=== PATIENT | female | born 1995 | race Caucasian/White ===

== ENCOUNTER 2018-03-08 08:00 | Outpatient (CLI) | payer OTHER ==
[2018-03-08 12:27] LABS: BASOPHILS # (AUTO) 0.1 10^3/uL (0.0-0.1); EOSINOPHILS # (AUTO) 0.1 10^3/uL (0.0-0.7); EOSINOPHILS % (AUTO) 1.3 %; HGB - HEMOGLOBIN 13.1 g/dL (12.0-16.0); LYMPHOCYTES # (AUTO) 2.2 10^3/uL (1.5-3.5); LYMPHOCYTES % (AUTO) 35.7 %; MEAN CORPUSCULAR HEMOGLOBIN 28.4 pg (27.0-31.0); MEAN PLATELET VOLUME 7.7 fL (7.9-10.8); MONOCYTES # (AUTO) 0.4 10^3/uL (0.0-1.0); MONOCYTES % (AUTO) 5.8 %; NEUTROPHILS # (AUTO) 3.5 10^3/uL (1.5-6.6); NEUTROPHILS % (AUTO) 56.2 %; PLT - PLATELET COUNT 291 10^3/uL (130-450); RED BLOOD COUNT 4.63 10^6/uL (4.20-5.40); RED CELL DISTRIBUTION WIDTH 12.8 % (12.0-15.0); WHITE BLOOD COUNT 6.2 x10^3/uL (4.8-10.8)
[2018-03-08 13:18] LABS: ALBUMIN/GLOBULIN RATIO 1.1 (1.0-2.2); ALKALINE PHOSPHATASE 70 IU/L (42-121); ALT ALANINE AMINOTRANSFERASE 22 IU/L (10-60); AST ASPARTATE AMINOTRANSFERASE 20 IU/L (10-42); BILIRUBIN,TOTAL 0.7 mg/dL (0.2-1.0); BUN - BLOOD UREA NITROGEN 14 mg/dL (6-20); CALCIUM 9.4 mg/dL (8.5-10.3); CARBON DIOXIDE - CO2 26 mmol/L (21-32); CHLORIDE 102 mmol/L (101-111); CHOL/HDL RATIO 2.8 (<4.4); CHOLESTEROL 178 mg/dL; CREATININE 0.8 mg/dL (0.4-1.0); GFR - MDRD 89 (>89); GLUCOSE 89 mg/dL (70-100); HDL CHOLESTEROL 64 mg/dL; LDL CHOLESTEROL,CALCULATED 103 mg/dL; LDL/HDL RATIO 1.6 (<4.4); SODIUM 136 mmol/L (135-145); TOTAL PROTEIN 7.8 g/dL (6.7-8.2); VLDL CHOLESTEROL 11 mg/dL
[2018-03-08 13:27] LABS: CRP - C-REACTIVE PROTEIN < 1.0 mg/dL (0-1.0)
[2018-03-08 13:50] LABS: RHEUMATOID FACTOR NEGATIVE (Negative)
[2018-03-10 13:46] LABS: ANA SCREEN NEGATIVE (NEGATIVE)
== END 2018-03-08 08:01 | disposition home or self-care (01) ==
LOC: LAB.N 08:00
PROVIDERS: ATTEND Nurse Practitioner Gerontology
DX: Z13.9 Encounter for screening, unspecified (principal); M25.50 Pain in unspecified joint
CPT/HCPCS: 36415; 80053; 80061; 83721; 84443; 85025; 85651; 86038; 86140; 86430

== ENCOUNTER 2018-11-08 09:49 | Outpatient (CLI) | payer OTHER ==
[2018-11-08 12:52] LABS: BASOPHILS % (AUTO) 0.7 %; EOSINOPHILS # (AUTO) 0.1 10^3/uL (0.0-0.7); LYMPHOCYTES # (AUTO) 2.1 10^3/uL (1.5-3.5); LYMPHOCYTES % (AUTO) 29.3 %; MEAN CORPUSCULAR HEMOGLOBIN 28.4 pg (27.0-31.0); MEAN CORPUSCULAR HGB CONC 33.5 g/dL (32.0-36.0); MEAN CORPUSCULAR VOLUME 84.9 fL (81.0-99.0); MEAN PLATELET VOLUME 7.5 fL (7.9-10.8); MONOCYTES # (AUTO) 0.4 10^3/uL (0.0-1.0); MONOCYTES % (AUTO) 6.3 %; NEUTROPHILS # (AUTO) 4.4 10^3/uL (1.5-6.6); NEUTROPHILS % (AUTO) 62.7 %; PLT - PLATELET COUNT 292 10^3/uL (130-450); RED BLOOD COUNT 4.58 10^6/uL (4.20-5.40); RED CELL DISTRIBUTION WIDTH 13.1 % (12.0-15.0)
[2018-11-08 13:09] LABS: CHOL/HDL RATIO 2.7 (<4.4); CHOLESTEROL 199 mg/dL; GLUCOSE,FASTING 92 mg/dL (70-100); HDL CHOLESTEROL 75 mg/dL
[2018-11-08 13:13] LABS: THYROID STIMULATING HORMONE 2.36 uIU/mL (0.34-5.60)
[2018-11-08 13:27] LABS: LDL CHOLESTEROL,DIRECT 133 mg/dL; LDLD/HDL RATIO 1.8 (<4.4)
[2018-11-08 13:38] LABS: HB2 TOTAL 14.3 g/dL; HEMOGLOBIN A1C 0.51 g/dL; HEMOGLOBIN A1C % 5.4 % (4.6-6.2)
[2018-11-08 13:40] LABS: FOLLICLE STIMULATING HORMONE 2.89 mIU/mL
[2018-11-08 13:41] LABS: LUTEINIZING HORMONE 8.45 mIU/mL
== END 2018-11-08 23:59 | disposition home or self-care (01) ==
LOC: LAB.N 09:49
PROVIDERS: ATTEND Obstetrics & Gynecology
DX: N92.6 Irregular menstruation, unspecified (principal)
CPT/HCPCS: 36415; 80061; 81599; 82947; 83001; 83002; 83036; 83721; 84402; 84403; 84443; 85025

== ENCOUNTER 2018-11-16 16:56 | Outpatient (CLI) | payer OTHER ==
--- NOTE | 2018-11-16 20:39 | Ultrasound Report ---
Reason: IRREGULAR MENSES Procedure Date: 11/16/2018 Accession Number: [id number] / [id number] Procedure: US - Pelvic w/Transvaginal CPT Code: FULL RESULT: EXAM: PELVIC ULTRASOUND EXAM DATE: 11/16/2018 06:44 PM. CLINICAL HISTORY: IRREGULAR MENSES. COMPARISON: None. TECHNIQUE: Realtime transabdominal pelvic scan performed to identify the uterus and adnexa and as an overview of other pelvic structures, followed by transvaginal scan to provide greater detail of the uterus and adnexa, with static image documentation. FINDINGS: Uterus: 8.2 x 3.9 x 3.7 cm, volume 62 cc. Anteverted position. Normal overall size and echotexture. Masses: None. Endometrium: 11 mm. Normal. Cervix: Unremarkable. Right Ovary: 6.3 x 5.6 x 3.9 cm, volume 70 cc. There is a 5.5 x 5.0 x 3.7 cm hemorrhagic cyst. Normal flow is seen to the surrounding ovarian parenchyma. Left Ovary: 2.7 x 2.0 x 2.0 cm, volume 6 cc. Normal echotexture and blood flow. Free Fluid: None. Other: None. IMPRESSION: 5.5 cm hemorrhagic right ovarian cyst. Normal flow to the surrounding ovarian parenchyma. Follow-up scan in 2-3 cycles is recommended to document resolution. RADIA
== END 2018-11-16 16:57 | disposition home or self-care (01) ==
LOC: DI 16:56
PROVIDERS: ATTEND Obstetrics & Gynecology
DX: N83.201 Unspecified ovarian cyst, right side (principal)
CPT/HCPCS: 76830; 76856

== ENCOUNTER 2019-01-07 09:35 | Emergency (ER) | payer OTHER ==
[2019-01-07 10:38] LABS: BILIRUBIN,URINE NEGATIVE (NEGATIVE); GLUCOSE, URINE (UA) NEGATIVE (NEGATIVE); KETONES,URINE (UA) NEGATIVE (NEGATIVE); LEUKOCYTE ESTERASE, URINE TRACE (NEGATIVE); NITRITE,URINE NEGATIVE (NEGATIVE); OCCULT BLOOD,URINE NEGATIVE (NEGATIVE); PH,URINE 6.5 PH (5.0-7.5); PROTEIN,URINE NEGATIVE (NEGATIVE); UROBILINOGEN,URINE 0.2 (NORMAL) E.U./dL (NORMAL)
[2019-01-07 10:39] LABS: CLARITY,URINE HAZY (CLEAR); HCG UR QUAL POSITIVE
[2019-01-07 10:46] LABS: BACTERIA,URINE Rare /HPF (None Seen); RBC,URINE 0-5 /HPF (0-5); SQUAMOUS EPITHELIAL CELL,UR MOD Squamous (<= Few)
--- NOTE | 2019-01-07 10:59 | ED Physician Documentation ---
PD HPI URI - Stated complaint Stated Complaint: COUGH/SOA/7 WKS - Chief complaint Chief Complaint: General - History obtained from History obtained from: Patient - History of Present Illness Timing - onset: How many days ago (5) Timing duration: Days (5) Timing details: Gradual onset, Still present Associated symptoms: Ear pain, Nasal congestion, Rhinorrhea, Sinus pain, Productive cough Improves by: Rest, Medication Worsened by: Activity Similar symptoms before: Has not had sx before Recently seen: Clinic - Additional information Additional information: 23-year-old female who is may be 7 weeks has developed a cough and congestion and she is now developed some cramping in the lower abdomen related to the coughing and she has not had any bleeding. She indicates she has had some pain in the left sinus and that she is blowing a lot of yellow and green mucus from her nose. She states that she is never had a cold this bad and that she is getting a lot of mucus drainage. Review of Systems Constitutional: denies: Fever Eyes: denies: Decreased vision Ears: reports: Ear pain Nose: reports: Rhinorrhea / runny nose, Congestion Throat: reports: Sore throat Cardiac: denies: Chest pain / pressure, Palpitations Respiratory: reports: Cough. 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 : None HEENT: None Psych: None Musculoskeletal: None Derm: None Other Past Medical History: polycystic ovarian syndrome - Past Surgical History Past Surgical History: Yes Cardiovascular: Other - Present Medications Home Medications: Ambulatory Orders Medication Instructions Recorded Confirmed Azithromycin [Zithromax] 250 mg PO DAILY #6 tablet 01/07/19 metFORMIN [Glucophage] 250 mg ORAL BID 01/07/19 - Allergies Allergies/Adverse Reactions: Allergies Allergy/AdvReac Type Severity Reaction Status Date / Time No Known Drug Allergies Allergy Verified 01/07/19 09:46 - Social History Does the pt smoke?: No Smoking Status: Never smoker Does the pt drink ETOH?: No Does the pt have substance abuse?: No - Immunizations Immunizations are current?: Yes - POLST Patient has POLST: No PD ED PE NORMAL - Vitals Vital signs reviewed: Yes (tachy and hypertensive ) - General General: Alert and oriented X 3, No acute distress, Well developed/nourished - HEENT HEENT: Atraumatic, PERRL, EOMI, Ears normal, Moist mucous membranes, Pharynx benign, Other (There is point tenderness to the maxillary sinus on the left and not on the right. ) - Neck Neck: Supple, no meningeal sign, No bony TTP - Cardiac Cardiac: RRR, No murmur - Respiratory Respiratory: No respiratory distress, Clear bilaterally - Abdomen Abdomen: Soft, Non tender - Back Back: No CVA TTP, No spinal TTP - Derm Derm: Normal color, Warm and dry, No rash - Extremities Extremities: No deformity, No edema - Neuro Neuro: Alert and oriented X 3, convention services director 2-12 intact, No motor deficit, No sensory deficit, Normal speech Eye Opening: Spontaneous Motor: Obeys Commands Verbal: Oriented GCS Score: 15 - Psych Psych: Normal mood, Normal affect Results - Vitals Vitals: Vital Signs - 24 hr 01/07/19 01/07/19 09:41 11:54 Temperature 36.7 C Heart Rate 101 H 96 Respiratory 18 18 Rate Blood Pressure 136/87 H 117/59 L O2 Saturation 100 100 Oxygen O2 Source Room air - Labs Labs: Laboratory Tests 01/07/19 01/07/19 10:22 11:15 HCG, Quant 1785.00 Urine Color YELLOW Urine Clarity HAZY Urine pH 6.5 Ur Specific [place] 1.010 Urine Protein NEGATIVE Urine Glucose (UA) NEGATIVE Urine Ketones NEGATIVE Urine Occult Blood NEGATIVE Urine Nitrite NEGATIVE Urine Bilirubin NEGATIVE Urine Urobilinogen 0.2 (NORMAL) Ur Leukocyte Esterase TRACE H Urine RBC 0-5 Urine WBC 0-3 Ur Squamous Epith Cells MOD Squamous H Urine Bacteria Rare Urine Culture Comments NOT INDICATED Urine HCG, Qual POSITIVE Procedures - Bedside sono Bedside sono by EMP: With use of bedside ultrasound the pelvis is imaged there is urine in the bladder the uterus is visible there is no obvious gestational sac. PD MEDICAL DECISION MAKING - ED course Complexity details: reviewed old records, reviewed results, re-evaluated patient, considered differential, d/w patient ED course: 23 y/o female with early has developed cramping pelvic pain this morning related to a persistent cough. Her HcG is 1785 and I am not able to see a gestational sac. She is instructed to have a repeat quant done in 2 days and follow up with Dr. Paniagua. Her sinusitis is treated with zithromax and tesselon. Departure - Departure Disposition: 01 Home, Self Care Clinical Impression: Early stage of Sinusitis Qualifiers: Sinusitis location: maxillary Chronicity: acute Recurrence: non-recurrent Qualified Code(s): J01.00 - Acute maxillary sinusitis, unspecified Condition: Stable Instructions: ED Sinusitis Abx Tx, ED Abdominal Pain Rule Out Ectopic Follow-Up: Marlena Mcdonald PA-C [Primary Care Provider] - Puja Paniagua MD [Provider Admit Priv/Credential] - Prescriptions: Azithromycin [Zithromax] 250 mg PO DAILY #6 tablet Comments: Today your quantitative hCG was 1785. This blood test should be repeated in 2 days to demonstrate normal progression.
[2019-01-07 12:54] VITALS: BP 125/79
== END 2019-01-07 12:54 | disposition home or self-care (01) ==
LOC: ED 09:35
DX: O99.89 Other specified diseases and conditions complicating pregnancy, childbirth and the puerperium (principal); J01.00 Acute maxillary sinusitis, unspecified; Z3A.01 Less than 8 weeks gestation of pregnancy
CPT/HCPCS: 36415; 81001; 81025; 84702; 87086; 99283

== ENCOUNTER 2019-01-22 12:02 | Outpatient (CLI) | payer OTHER ==
--- NOTE | 2019-01-23 00:33 | Ultrasound Report ---
Reason: TEST POSITIVE Procedure Date: 01/22/2019 Accession Number: [id number] / [id number] Procedure: US - OB First Trimester CPT Code: FULL RESULT: EXAM: FIRST TRIMESTER OBSTETRIC ULTRASOUND (LESS THAN 11 WEEKS). EXAM DATE: 01/22/2019 12:49 PM. CLINICAL HISTORY: test positive. LMP: 11/16/2018. COMPARISONS: PELVIC W/TRANSVAGINAL 11/16/2018 6:05 PM. TECHNIQUE: Transabdominal and transvaginal ultrasound examination with static image documentation. CLINICAL DATES: EGA 9 weeks 4 days with JOAQUIN 08/23/2019 based on LMP. ASSESSMENT: Gestational Sac: Single intrauterine. Embryo: CRL (crown-rump length) 6.4 mm = 6 weeks 3 days. Cardiac activity: 123 beats per minute. Yolk sac: 2.6 mm. Amniotic fluid: Not accurately assessed at this gestational age. Early placenta: Not visible at this gestational age. Other: No perigestational fluid collection demonstrated. MATERNAL STRUCTURES: Uterus: Retroverted. Unremarkable. Cervix: Closed. Right Ovary/Adnexa: The ovary measures 3.3 x 2.4 x 3 cm, volume 12 cc. 2.2 x 1.8 x 1.9 Cm complex right ovarian cyst with debris and mild peripheral flow. No mural nodules or thickened septations. Unremarkable. Left Ovary/Adnexa: The ovary measures 2.8 x 1.8 x 2.9 cm, volume 7.6 cc. Multiple ovarian follicles. Otherwise, left adnexa and ovary are unremarkable. Free Fluid: Small amount of free fluid noted. Other: None. IMPRESSION: 1. Single viable intrauterine at EGA 6 weeks 3 days with JOAQUIN 09/14/2019 based on crown-rump length, which is discordant with clinical dates. 2. Assigned dating is JOAQUIN 09/14/2019 based on current ultrasound. 3. No complication such as a subchronic hemorrhage. 4. Right ovarian corpus luteum measuring 2.2 cm. Otherwise, both ovaries and adnexa are normal. RADIA
== END 2019-01-22 12:03 | disposition home or self-care (01) ==
LOC: DI 12:02
PROVIDERS: ATTEND Registered Nurse
DX: Z32.01 Encounter for pregnancy test, result positive (principal)
CPT/HCPCS: 76801

== ENCOUNTER 2019-03-31 11:37 | Outpatient (CLI) | payer OTHER | END 2019-03-31 11:38 | disposition home or self-care (01) | LOC: LAB 11:37 | PROVIDERS: ATTEND Obstetrics & Gynecology | DX: Z36.89 Encounter for other specified antenatal screening (principal) | CPT/HCPCS: 36415; 81599; 82105; 82677; 84702; 86336 ==

== ENCOUNTER 2019-05-01 06:52 | Outpatient (CLI) | payer OTHER ==
--- NOTE | 2019-05-02 09:31 | Ultrasound Report ---
Reason: SCREENING, OTHER SPECIFIED Procedure Date: 05/01/2019 Accession Number: [id number] / [id number] Procedure: US - OB Detailed Eval CPT Code: FULL RESULT: EXAM: COMPLETE OBSTETRICAL ULTRASOUND EXAM DATE: 05/01/2019 11:09 AM. CLINICAL HISTORY: anatomic survey. COMPARISON: OB FIRST TRIMESTER 01/22/2019 12:19 PM. TECHNIQUE: Real-time sonographic evaluation of the fetus performed by the power switchboard operator. Multiple senior outside sales representative static images were saved for review. DATING: Established EGA 20 weeks 4 days with JOAQUIN 09/14/2019 based on physician stated and first ultrasound. EGA 21 weeks 0 days with JOAQUIN 09/11/2019 based on the current ultrasound. GENERAL EVALUATION Koch . Cardiac activity: 147 bpm. movement: Visualized. Presentation: Breech. Placenta: Posterior fundal position. No evidence for previa. Umbilical cord: 3 vessel cord. Central placental cord origin. Amniotic fluid: Subjectively normal. MVP 4.8 cm. BIOMETRY Bi-Parietal Diameter (BPD): 4.8 cm, 20 weeks 3 days Head Circumference (HC): 19.1 cm, 21 weeks 2 days Abdominal Circumference (AC): 16.7 cm, 21 weeks 5 days Femur Length (FL): 3.6 cm, 21 weeks 4 days Estimated Weight: 433 g, 91.5 percentile for 20 weeks 4 days. ANATOMY The intracranial structures, face/nose/lips, spine, stomach, abdominal wall and cord insertion, diaphragm, kidneys, bladder, and extremities were visualized and demonstrate no abnormality. There is suboptimal visualization of the profile/nasal bone, four-chamber heart views as well as outflow tracts due to position and maternal body habitus. MATERNAL STRUCTURES Uterus: Unremarkable. Cervix: Long and closed. Transabdominal length 3.5 cm. Right ovary/adnexa: Unremarkable. Left ovary/adnexa: Unremarkable. Free fluid: None. IMPRESSION: 1. Koch live intrauterine with gestational age 20 weeks 4 days based on physician stated/first ultrasound. 2. Estimated weight is within expected limits for assigned dating. 3. No anatomic abnormalities are detected at this time, although some structures were suboptimally imaged. Recommend short interval followup imaging to reassess profile, nasal bone, heart and outflow tracts to complete anatomic survey. RADIA
== END 2019-05-01 06:53 | disposition home or self-care (01) ==
LOC: DI 06:52
PROVIDERS: ATTEND Obstetrics & Gynecology
DX: Z36.89 Encounter for other specified antenatal screening (principal)
CPT/HCPCS: 76811

== ENCOUNTER 2019-06-05 10:22 | Outpatient (CLI) | payer OTHER ==
--- NOTE | 2019-06-05 14:17 | Ultrasound Report ---
Reason: FOLLOWUP EXAMINATION, SUPERVISION HIGH RISK PREGNA Procedure Date: 06/05/2019 Accession Number: [id number] / [id number] Procedure: US - OB F/U or Repeat CPT Code: FULL RESULT: EXAM: FOLLOW-UP OBSTETRICAL ULTRASOUND EXAM DATE: 06/05/2019 12:28 PM. CLINICAL HISTORY: Follow-up examination, supervision high risk . COMPARISON: 05/01/2019. TECHNIQUE: Real-time sonographic evaluation of the fetus performed by the corporate communications specialist. Multiple customer assistance representative static images were saved for review. DATING: Established EGA 25 weeks 4 days with JOAQUIN 09/14/2019 based on working due date. EGA 25 weeks 6 days with JOAQUIN 09/12/2019 based on the current ultrasound. GENERAL EVALUATION Koch . Cardiac activity: 162 bpm. movement: Visualized. Presentation: Cephalic. Placenta: Posterior position. Amniotic fluid: Normal. AIDAN 12.3 cm. MVP 3.3 cm. BIOMETRY Bi-Parietal Diameter (BPD): 6.44 cm, 26 weeks 0 days Head Circumference (HC): 24.12 cm, 26 weeks 1 day Abdominal Circumference (AC): 20.7 cm, 25 weeks 2 days Femur Length (FL): 4.8 cm, 26 weeks 0 days Estimated Weight: 834 g, 42nd percentile for 25 weeks 4 days. ANATOMY cardiac view including outflow tract as well as profile/nasal view are normal. MATERNAL STRUCTURES Maternal cervix is long and closed, 4.2 cm transabdominally. IMPRESSION: 1. Koch live intrauterine with gestational age 25 weeks 4 days based on working due date. 2. Estimated weight is within expected limits for assigned dating. 3. Normal interval growth compared to 05/01/2019. RADIA
== END 2019-06-05 10:23 | disposition home or self-care (01) ==
LOC: DI 10:22
PROVIDERS: ATTEND Obstetrics & Gynecology
DX: O09.92 Supervision of high risk pregnancy, unspecified, second trimester (principal); Z36.89 Encounter for other specified antenatal screening; Z3A.25 25 weeks gestation of pregnancy
CPT/HCPCS: 76816

== ENCOUNTER 2019-06-25 09:22 | Emergency (ER) | payer OTHER ==
[2019-06-25 10:05] LABS: BASOPHILS % (AUTO) 0.4 %; EOSINOPHILS % (AUTO) 0.4 %; HGB - HEMOGLOBIN 11.3 g/dL (12.0-16.0); LYMPHOCYTES # (AUTO) 1.5 10^3/uL (1.5-3.5); LYMPHOCYTES % (AUTO) 20.6 %; MEAN CORPUSCULAR HEMOGLOBIN 29.5 pg (27.0-31.0); MEAN CORPUSCULAR HGB CONC 33.1 g/dL (32.0-36.0); MEAN PLATELET VOLUME 9.3 fL (7.9-10.8); MONOCYTES # (AUTO) 0.5 10^3/uL (0.0-1.0); MONOCYTES % (AUTO) 6.9 %; NEUTROPHILS # (AUTO) 5.1 10^3/uL (1.5-6.6); NEUTROPHILS % (AUTO) 71.1 %; PLT - PLATELET COUNT 227 10^3/uL (130-450); RED BLOOD COUNT 3.83 10^6/uL (4.20-5.40); WHITE BLOOD COUNT 7.1 x10^3/uL (4.8-10.8)
--- NOTE | 2019-06-25 10:06 | ED Physician Documentation ---
PD HPI CHEST PAIN - Stated complaint Stated Complaint: CHEST PX - Chief complaint Chief Complaint: Resp - History obtained from History obtained from: Patient - History of Present Illness Timing - onset: Yesterday Timing - onset during: Rest Timing - duration: Days (2) Timing - details: Abrupt onset, Intermittant Severity Comments: moderate mid substernal Quality: Pressure Location: Substernal Radiation: Other (none) Improved by: Nothing Worsened by: Other (nothing) Associated symptoms: Shortness of air, Feeling faint / dizzy, Palpitations, Cough. No: Diaphoresis, Nausea, Vomiting, General Weakness Similar symptoms before: Has not had sx before Recently seen: Clinic - Treatment prior to arrival Treatment prior to arrival: none - Additional information Additional information: Pt is a 28 weeks Review of Systems Ten Systems: 10 systems reviewed and negative Constitutional: denies: Fever, Chills Nose: reports: Congestion Throat: denies: Sore throat Cardiac: reports: Chest pain / pressure, Palpitations Respiratory: reports: Dyspnea, Cough. denies: Hemoptysis, Wheezing GI: denies: Abdominal Pain, Nausea, Vomiting : reports: Reviewed and negative Skin: reports: Reviewed and negative. 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 : None HEENT: None Psych: None Musculoskeletal: None Derm: None - Past Surgical History Past Surgical History: Yes Cardiovascular: Other - Present Medications Home Medications: Ambulatory Orders Medication Instructions Recorded Confirmed Sertraline [Zoloft] 25 mg PO DAILY 06/25/19 06/25/19 raNITIdine [Zantac] 150 mg PO DAILY 06/25/19 06/25/19 - Allergies Allergies/Adverse Reactions: Allergies Allergy/AdvReac Type Severity Reaction Status Date / Time No Known Drug Allergies Allergy Verified 06/25/19 09:33 - Social History Does the pt smoke?: No Smoking Status: Never smoker Does the pt drink ETOH?: No Does the pt have substance abuse?: No - Immunizations Immunizations are current?: Yes - POLST Patient has POLST: No PD ED PE NORMAL - Vitals Vital signs reviewed: Yes - General General: Alert and oriented X 3, No acute distress, Well developed/nourished - HEENT HEENT: Atraumatic, Pharynx benign - Neck Neck: Supple, no meningeal sign, No JVD - Cardiac Cardiac: RRR, No murmur - Respiratory Respiratory: No respiratory distress - Abdomen Abdomen: Soft, Non tender, Non distended - Female Female : Deferred - Rectal Rectal: Deferred - Derm Derm: Normal color, Warm and dry, No rash - Extremities Extremities: No deformity, No tenderness to palpate, Normal ROM s pain, No edema, No calf tenderness / cord - Neuro Neuro: Alert and oriented X 3 Eye Opening: Spontaneous Motor: Obeys Commands Verbal: Oriented GCS Score: 15 - Psych Psych: Normal mood, Normal affect PD ED PE EXPANDED - Cardiac Cardiac: No: Chest wall TTP Results - Vitals Vitals: Vital Signs - 24 hr 06/25/19 06/25/19 06/25/19 09:30 10:05 10:33 Temperature 36.5 C Heart Rate 97 88 75 Respiratory 18 16 12 Rate Blood Pressure 135/89 H 113/83 H 113/70 O2 Saturation 100 98 99 06/25/19 06/25/19 10:37 11:14 Temperature 37 C Heart Rate 79 84 Respiratory 18 15 Rate Blood Pressure 116/69 118/66 O2 Saturation 100 98 Oxygen O2 Source Room air - EKG (time done) 09:31 Rate: Rate (enter#) (87) Rhythm: NSR Olin: Normal Intervals: Normal ND, QRS normal. No: Prolonged QT QRS: Normal Ischemia: Normal ST segments Other comments: Other comments (no stemi, no signs of R heart strain) Computer interpretation: Agree with computer - Labs Labs: Laboratory Tests 06/25/19 06/25/19 06/25/19 09:53 09:53 09:53 WBC 7.1 RBC 3.83 L Hgb 11.3 L Hct 34.1 L MCV 89.0 MCH 29.5 MCHC 33.1 RDW 13.0 Plt Count 227 MPV 9.3 Neut # (Auto) 5.1 Lymph # (Auto) 1.5 Obion # (Auto) 0.5 Eos # (Auto) 0.0 Baso # (Auto) 0.0 Absolute Nucleated RBC 0.00 Nucleated RBC % 0.0 D-Dimer 398.2 H Sodium 136 Potassium 3.7 Chloride 103 Carbon Dioxide 23 Anion Gap 10.0 BUN 6 Creatinine 0.5 Estimated GFR (MDRD) 150 Glucose 96 Calcium 8.7 Total Bilirubin 0.6 AST 15 ALT 14 Alkaline Phosphatase 57 Troponin I High Sens Total Protein 6.5 L Albumin 3.1 L Globulin 3.4 Albumin/Globulin Ratio 0.9 L Lipase 25 06/25/19 09:53 WBC RBC Hgb Hct MCV MCH MCHC RDW Plt Count MPV Neut # (Auto) Lymph # (Auto) [place] # (Auto) Eos # (Auto) Baso # (Auto) Absolute Nucleated RBC Nucleated RBC % D-Dimer Sodium Potassium Chloride Carbon Dioxide Anion Gap BUN Creatinine Estimated GFR (MDRD) Glucose Calcium Total Bilirubin AST ALT Alkaline Phosphatase Troponin I High Sens < 2.3 L Total Protein Albumin Globulin Albumin/Globulin Ratio Lipase - Rads (name of study) CXR Radiology: Final report received, EMP read contemporaneously (negative ), See rad report PD MEDICAL DECISION MAKING - ED course Complexity details: reviewed results, re-evaluated patient, considered differential, d/w patient, d/w family ED course: ddx- ACS, anxiety, costochondritis, GERD, PE, Bronchitis, URI, chest wall strain, arrhythmia 24 y/o F 28 weeks with chest pain, palpitations for 2 days. Reports she does cough hard sometimes but has not had a chronic cough. Nonproductive. No fever. No leg pain or swelling. No hx of recent surgery or travel and no personal or family hx of PE/DVT. EKG is nonsichemic without signs of R heart strain Her vitals are normal, not tachycardic, tachypneic or hypoxic to suggest PE and d-dimer here when adjusted for 3rd trimester is normal. labs are normal including troponin. She has a normal CXR and on reassessment is feeling better and reports she is asymptomatic. I feel she is stable for discharge with outpt f/u and discussed this plan with her Obgyn who sent her into the ED today and he agrees. Departure - Departure Disposition: 01 Home, Self Care Clinical Impression: Atypical chest pain Condition: Stable Record reviewed to determine appropriate education?: Yes Instructions: ED Chest Pain Atypical Unkn Cause Follow-Up: Marlena Mcdonald PA-C [Primary Care Provider] - As Needed Comments: Your labs, EKG, chest xray and d-dimer today were all for your trimester of . There is no evidence of a heart attack, heart failure, pulmonary embolism (blood clot in your lung) or other serious heart or lung problem. You can take tylenol as needed for pain. Follow up with your regular doctor. Discharge Date/Time: 06/25/19 11:14
[2019-06-25 10:16] LABS: ALBUMIN 3.1 g/dL (3.2-5.5); ALBUMIN/GLOBULIN RATIO 0.9 (1.0-2.2); BILIRUBIN,TOTAL 0.6 mg/dL (0.2-1.0); CALCIUM 8.7 mg/dL (8.5-10.3); CREATININE 0.5 mg/dL (0.4-1.0); TOTAL PROTEIN 6.5 g/dL (6.7-8.2)
--- NOTE | 2019-06-25 11:06 | XRAY Report ---
Reason: chest pain Procedure Date: 06/25/2019 Accession Number: [id number] / [id number] Procedure: XR - Chest 1 View X-Ray CPT Code: 41013 FULL RESULT: EXAM: CHEST RADIOGRAPHY EXAM DATE: 06/25/2019 10:21 AM. CLINICAL HISTORY: Chest pain. COMPARISON: None. TECHNIQUE: 1 view. FINDINGS: Lungs/Pleura: No focal opacities evident. No pleural effusion. No pneumothorax. Mediastinum: Within exam limitations, the cardiomediastinal contour is normal. Other: None. IMPRESSION: Normal single view chest. RADIA
[2019-06-25 11:14] VITALS: BP 118/66
== END 2019-06-25 11:14 | disposition home or self-care (01) ==
LOC: ED 09:22
DX: O99.89 Other specified diseases and conditions complicating pregnancy, childbirth and the puerperium (principal); R07.89 Other chest pain; R00.2 Palpitations; Z3A.28 28 weeks gestation of pregnancy
CPT/HCPCS: 36415; 71045; 80053; 83690; 84484; 85025; 85379; 93005; 99283; 99284

== ENCOUNTER 2019-08-17 08:00 | Outpatient (CLI) | payer OTHER ==
[2019-08-18 18:34] LABS: TRICHOMONAS VAGINALIS DNA NEGATIVE (NEGATIVE)
== END 2019-08-17 23:59 | disposition home or self-care (01) ==
LOC: LAB.R 08:00
PROVIDERS: ATTEND Obstetrics & Gynecology
DX: Z36.89 Encounter for other specified antenatal screening (principal)
CPT/HCPCS: 87491; 87591; 87661; 87797

== ENCOUNTER 2019-08-18 18:23 | Outpatient (CLI) | payer OTHER ==
[2019-08-18 18:47] VITALS: BP 124/89
--- NOTE | 2019-08-18 19:42 | PROVIDER PROGRESS NOTE ---
- HPI Chief Complaint: Labor Check Current : Current EDU 09/14/19 Gestation 36 Weeks and 1 Days 2 Para 1 Vital Signs Temperature 36.9 C 08/18/19 18:35 Heart Rate 108 H 08/18/19 18:35 Blood Pressure 124/89 H 08/18/19 18:35 O2 Saturation 100 08/18/19 18:35 Temperature 36.9 C 08/18/19 18:35 Heart Rate 108 H 08/18/19 18:35 Respiratory Rate Blood Pressure 124/89 H 08/18/19 18:35 O2 Saturation 100 08/18/19 18:35 The patient came to labor and delivery tonight complaining of contractions. She denied any vaginal bleeding or fluid. - Exam The cervix is closed thick and posterior.She is having some irregular mild contractions that are spaced far apart. The fetus is reactive. - Procedures OB Procedure Performed: NST NST Procedure: There is a reactive NST noted. The patient has some irregular mild contractions. The strip was read on 08/18/2019. Findings: Intrauterine at 36 weeks 1 day False labor Plan: The patient is going to be discharged home.She will follow-up in the clinic at her regular visit. Signs of labor were reviewed. She will return to OB if any signs of labor ensue. - Plan Plan: Discharged home
== END 2019-08-18 19:43 | disposition home or self-care (01) ==
LOC: WFO 18:23 → FBP 18:41 → WFO 19:43
PROVIDERS: ATTEND Obstetrics & Gynecology
DX: Z34.82 Encounter for supervision of other normal pregnancy, second trimester (principal); Z3A.36 36 weeks gestation of pregnancy
CPT/HCPCS: 99213

== ENCOUNTER 2019-08-22 20:58 | Outpatient (CLI) | payer OTHER ==
[2019-08-22 22:34] VITALS: BP 127/82
--- NOTE | 2019-08-22 22:54 | PROVIDER PROGRESS NOTE ---
- HPI Chief Complaint: Labor Check Current : Current EDU 09/14/19 Gestation 36 Weeks and 5 Days 2 Para 1 Vital Signs Heart Rate 114 H 08/22/19 21:11 Respiratory Rate 16 08/22/19 21:11 Blood Pressure 139/88 H 08/22/19 21:11 O2 Saturation 100 08/22/19 21:11 Temperature Heart Rate 97 08/22/19 22:33 Respiratory Rate 20 08/22/19 22:33 Blood Pressure 127/82 H 08/22/19 22:33 O2 Saturation 100 08/22/19 22:33 The patient states her contractions began becoming stronger at approximately 1800 hrs. She denies any vaginal bleeding or fluid. - Exam Patient cervix is 1 to 2 cm and has been unchanged for her entire stay at the [facility]. Her contractions are mild and irregular and have almost stopped.The fetus is reactive. - Procedures Service Date of procedure: 08/22/19 Findings: Intrauterine at 36 weeks 5 days gestation False labor - Plan Plan: The patient is being discharged home. She will follow-up with her regularly scheduled obstetrical appointment. She will call if signs of labor ensue.
== END 2019-08-22 22:50 | disposition home or self-care (01) ==
LOC: WFO 20:58 → FBP 21:02 → WFO 22:50
PROVIDERS: ATTEND Surgery
DX: O47.03 False labor before 37 completed weeks of gestation, third trimester (principal); Z3A.36 36 weeks gestation of pregnancy
CPT/HCPCS: 99213

== ENCOUNTER 2019-08-23 03:05 | Outpatient (CLI) | payer OTHER ==
[2019-08-23 03:22] VITALS: BP 129/89
--- NOTE | 2019-08-23 04:47 | PROVIDER PROGRESS NOTE ---
- HPI Chief Complaint: Labor Check Current : Current EDU 09/14/19 Gestation 36 Weeks and 6 Days 2 Para 1 Vital Signs Temperature 36.6 C 08/23/19 03:09 Heart Rate 94 08/23/19 03:09 Respiratory Rate 16 08/23/19 03:09 Blood Pressure 142/90 H 08/23/19 03:09 O2 Saturation 100 08/23/19 03:09 Temperature 36.6 C 08/23/19 03:09 Heart Rate 94 08/23/19 03:09 Respiratory Rate 16 08/23/19 03:09 Blood Pressure 129/89 H 08/23/19 03:22 O2 Saturation 100 08/23/19 03:09 The patient came back to OB stating that her contractions were becoming stronger.Interestingly to note that when they were discharged from the hospital they went home and had sexual intercourse.She still denies any vaginal bleeding or fluid. - Exam The fetus remains reactive. There is a category 1 EFM noted. She is having mild irregular contractions.Her cervix is 2 to 3 cm 50% effaced -3.No change has been noted since she came here. - Procedures Service Date of procedure: 08/23/19 Findings: Intrauterine at 36 weeks and 6 days gestation False labor - Plan Plan: Again the patient has been sent home.It does seem like she is doing things to try to induce her labor.She will return to clinic if she has vaginal bleeding or fluid or if she feels her contractions are again worsening. As long she does well she will just follow-up in the office in 48 hours for her regular office visit.
== END 2019-08-23 04:50 | disposition home or self-care (01) ==
LOC: WFO 03:05 → FBP 03:06 → WFO 04:50
PROVIDERS: ATTEND Obstetrics & Gynecology
DX: O47.03 False labor before 37 completed weeks of gestation, third trimester (principal); Z3A.36 36 weeks gestation of pregnancy
CPT/HCPCS: 99213

== ENCOUNTER 2019-08-27 20:20 | Outpatient (CLI) | payer OTHER ==
[2019-08-27 20:43] VITALS: BP 133/88
[2019-08-27 21:12] LABS: BILIRUBIN,URINE NEGATIVE (NEGATIVE); GLUCOSE, URINE (UA) NEGATIVE (NEGATIVE); KETONES,URINE (UA) NEGATIVE (NEGATIVE); LEUKOCYTE ESTERASE, URINE TRACE (NEGATIVE); NITRITE,URINE NEGATIVE (NEGATIVE); OCCULT BLOOD,URINE NEGATIVE (NEGATIVE); PH,URINE 7.5 PH (5.0-7.5); PROTEIN,URINE NEGATIVE (NEGATIVE); UROBILINOGEN,URINE 0.2 (NORMAL) E.U./dL (NORMAL)
[2019-08-27 21:13] LABS: CLARITY,URINE HAZY (CLEAR)
[2019-08-27 21:26] LABS: AMORPHOUS SEDIMENT,UR Few /LPF; BACTERIA,URINE None Seen /HPF (None Seen); RBC,URINE None Seen /HPF (0-5); SQUAMOUS EPITHELIAL CELL,UR FEW Squamous (<= Few)
--- NOTE | 2019-08-28 07:22 | PROVIDER PROGRESS NOTE ---
- HPI Chief Complaint: Labor Check Current : Current EDU 09/14/19 Gestation 37 Weeks and 3 Days 2 Para 1 Vital Signs Heart Rate 105 H 08/27/19 20:30 Respiratory Rate 20 08/27/19 20:30 Blood Pressure 150/91 H 08/27/19 20:30 O2 Saturation 100 08/27/19 20:30 Temperature 36.7 C 08/27/19 20:35 Heart Rate 89 08/27/19 20:35 Respiratory Rate 18 08/27/19 20:35 Blood Pressure 133/88 H 08/27/19 20:35 O2 Saturation 100 08/27/19 20:35 - Exam per nursing Cx is 1.5 cm - Procedures OB Procedure Performed: NST NST Procedure: NST reactive with base line 140 wiht good accelerations. Service Date of procedure: 08/27/19 Procedure Details: Pt is not in labor. Keep Appt in clinic.
== END 2019-08-27 21:58 | disposition home or self-care (01) ==
LOC: WFO 20:20 → FBP 20:22 → WFO 21:58
PROVIDERS: ATTEND Obstetrics & Gynecology
DX: Z34.83 Encounter for supervision of other normal pregnancy, third trimester (principal); Z3A.37 37 weeks gestation of pregnancy
CPT/HCPCS: 81001; 81003; 87086; 99213

== ENCOUNTER 2019-08-28 21:24 | Inpatient (IN) | payer OTHER ==
[2019-08-29] MEDS ORDERED: SODIUM CHLORIDE FLUSH 0.9% 10 ML SYRINGE IVP PRN (00:18)
[2019-08-29] MEDS ORDERED: AMPICILLIN 2 GM in SODIUM CHLORIDE 0.9% MINIBAG 100 ML IV ONE (00:18)
[2019-08-29] MEDS ORDERED: fentaNYL 100 MCG/2 ML VIAL IVP PRN (00:18)
[2019-08-29] MEDS ORDERED: SODIUM CHLORIDE FLUSH 0.9% 10 ML SYRINGE IVP SCH (01:00)
[2019-08-29] MEDS ORDERED: OXYTOCIN/DEXTROSE 5 % 30 UNIT/500 ML BAG IV ONE ×2 (01:02→10:15)
[2019-08-29 01:07] LABS: BASOPHILS % (AUTO) 0.3 %; EOSINOPHILS % (AUTO) 0.2 %; HGB - HEMOGLOBIN 11.6 g/dL (12.0-16.0); LYMPHOCYTES # (AUTO) 2.3 10^3/uL (1.5-3.5); LYMPHOCYTES % (AUTO) 18.1 %; MEAN CORPUSCULAR HEMOGLOBIN 29.7 pg (27.0-31.0); MEAN CORPUSCULAR HGB CONC 33.6 g/dL (32.0-36.0); MEAN CORPUSCULAR VOLUME 88.2 fL (81.0-99.0); MEAN PLATELET VOLUME 9.9 fL (7.9-10.8); MONOCYTES # (AUTO) 0.8 10^3/uL (0.0-1.0); MONOCYTES % (AUTO) 6.2 %; NEUTROPHILS # (AUTO) 9.3 10^3/uL (1.5-6.6); NEUTROPHILS % (AUTO) 74.6 %; PLT - PLATELET COUNT 211 10^3/uL (130-450); RED BLOOD COUNT 3.91 10^6/uL (4.20-5.40); RED CELL DISTRIBUTION WIDTH 13.1 % (12.0-15.0); WHITE BLOOD COUNT 12.4 x10^3/uL (4.8-10.8)
[2019-08-29] MEDS: LACTATED RINGERS 1,000 ML IV SCH ×2 (01:35→05:15)
[2019-08-29] MEDS ORDERED: ROPIVACAINE 0.2% 200 MG/100 ML BAG EP ONE (02:16)
[2019-08-29] MEDS ORDERED: ePHEDrine 50 MG/ML VIAL IVP PRN (03:11)
[2019-08-29] MEDS ORDERED: ROPIVACAINE 0.2% 200 MG/100 ML BAG EP PRN (03:11)
[2019-08-29] MEDS ORDERED: LACTATED RINGERS 500 ML IV ONE (03:11)
[2019-08-29] MEDS ORDERED: ONDANSETRON 4 MG/2 ML VIAL IVP PRN (03:11)
[2019-08-29] MEDS ORDERED: NALBUPHINE 10 MG/ML AMP IVP PRN (03:11)
[2019-08-29] MEDS ORDERED: NALOXONE 0.4 MG/ML VIAL IVP PRN (03:11)
[2019-08-29] MEDS ORDERED: diphenhydrAMINE INJ 50 MG/ML VIAL IVP PRN (03:11)
--- NOTE | 2019-08-29 03:16 | ANESTHESIA ---
Pre-Anesthesia VS, & Labs - Diagnosis active labor - Procedure labor epidural Vital Signs: Temp Pulse Resp BP Pulse Ox 36.6 C 105 H 18 131/79 H 99 08/28/19 21:36 08/28/19 21:36 08/28/19 21:36 08/28/19 21:36 08/28/19 21:36 Height 5 ft 10 in Weight (kg) 104.326 kg Body Mass Index 31.5 - NPO Other (clears) - Is Patient ?: Yes - Lab Results Current Lab Results: Laboratory Tests 08/29/19 01:24: Blood Type A POSITIVE, Antibody Screen NEGATIVE 08/29/19 00:40: Blood Type Recheck A POSITIVE 08/29/19 00:40: WBC 12.4 H, RBC 3.91 L, Hgb 11.6 L, Hct 34.5 L, MCV 88.2, MCH 29.7, MCHC 33.6, RDW 13.1, Plt Count 211, MPV 9.9, Neut # (Auto) 9.3 H, Lymph # (Auto) 2.3, [place] # (Auto) 0.8, Eos # (Auto) 0.0, Baso # (Auto) 0.0, Absolute Nucleated RBC 0.00, Nucleated RBC % 0.0 Fish Bones: 08/29/19 00:40 Home Medications and Allergies Active Medications Diphenhydramine HCl (Benadryl Inj) 12.5 - 25 mg IVP Q6HR PRN PRN Reason: ITCHING Ephedrine Sulfate () 5 mg IVP Q5M PRN PRN Reason: For SBP<100;give until SBP>100 Fentanyl (Fentanyl) 50 mcg IVP Q1H PRN PRN Reason: PAIN Ampicillin Sodium 1 gm/ Sodium (Chloride) 100 mls @ 200 mls/hr IV Q4H [facility] Lactated Ringer's (Lr) 1,000 mls @ 150 mls/hr IV .Q6H40M [facility] Last Admin: 08/29/19 01:35 Dose: 125 mls/hr Lactated Ringer's (Lr) 500 mls @ 999 mls/hr IV ONCE ONE Stop: 08/29/19 03:41 Nalbuphine HCl (Nubain) 2.5 - 5 mg IVP Q4H PRN PRN Reason: ITCHING Naloxone HCl (Narcan) 0.1 mg IVP Q2M PRN PRN Reason: RR<8 Ondansetron HCl (Zofran Inj) 4 mg IVP Q4H PRN PRN Reason: Nausea / Vomiting Ondansetron HCl (Zofran Inj) 4 mg IVP Q6HR PRN PRN Reason: Nausea / Vomiting Sodium Chloride (Normal Saline Flush 0.9%) 10 ml IVP PRN PRN PRN Reason: NEEDED PER PROVIDER ORDERS Sodium Chloride (Normal Saline Flush 0.9%) 10 ml IVP 0100,0900,1700 MICHELLE Sertraline [Zoloft] 25 mg PO DAILY 06/25/19 raNITIdine [Zantac] 150 mg PO DAILY 06/25/19 Allergies/Adverse Reactions: Allergies Allergy/AdvReac Type Severity Reaction Status Date / Time seasonal allergies Allergy Unknown Uncoded 06/26/19 10:54 epidural AdvReac Unknown vomiting, Uncoded 08/29/19 01:27 dizziness Anes History & Medical History - Anesthetic History Anesthesia Complications: reports: No previous complications - Medical History Cardiovascular: reports: None, Arrhythmia Pulmonary: reports: None Gastrointestinal: reports: None Urinary: reports: None Neuro: reports: None Musculoskeletal: reports: None Endocrine/Autoimmune: reports: None Blood Disorders: reports: None Skin: reports: None Smoking Status: Never smoker - Surgical History Cardiothoracic: Other Exam General: Alert Dental: WNL Mouth Opening: Greater than 4 Fingerbreadths Mallampati classification: II Thyromental Distance: greater than 6 cm Respiratory: Lungs clear Cardiovascular: Regular rate, Normal S1, Normal S2 Plan Anesthesia Type: Epidural Consent for Procedure(s) Verified and Reviewed: Yes Code Status: Attempt Resuscitation ASA classification: 2-Mild systemic disease Is this case an emergency?: No
[2019-08-29] MEDS: ONDANSETRON 4 MG/2 ML VIAL IVP PRN ×2 (04:25→09:13)
[2019-08-29] MEDS: AMPICILLIN 1 GM in SODIUM CHLORIDE 0.9% MINIBAG 100 ML IV SCH ×2 (05:15→09:14)
[2019-08-29] MEDS ORDERED: LIDOCAINE-MPF 1% 5 ML VIAL ONE (06:12)
[2019-08-29] MEDS ORDERED: fentaNYL 100 MCG/2 ML VIAL ONE (06:12)
--- NOTE | 2019-08-29 08:30 | HISTORY & PHYSICAL EXAMINATION ---
Admit History - : 2 Parity: 1 Care: positive: [facility] Risk/History: positive: Other (Hx of cardiac ablation; cleared for ) Smoking Status: Never smoker - Mother's Labs Mother's Blood Type: positive: A Mother's RH: positive: Positive GBS: positive: Group B Strep Positive Rubella Status: positive: Immune - Other Maternal History Other Maternal History: Patient presented with painful contractions. Seen in clinic on 08/28/19 with SVE of 3+/80/-2. No LOF/VB. Endorses FM. Onbserved over several hours with slow progression to 6 cm dilation without augmentation. A pos/Rub imm Pap: normal 10/04/2018 Flu vax: complete Genetic screening: Quad wnl Anatomy: Posterior placenta, 3VC. WNL Glucola 111 Tdap: complete HSV hx: none GBS: positive PROBLEMS --SVT s/p cardiac ablation: cardiology consult. Ablation done prior to last delivery and was cleared for vaginal delivery with that . See clinic note from 08/03/19. Cleared for delivery at this facility -Seen in ED for CP but had normal evaluation ALL: Lists epidural but limited to dizziness and pruritus; no true allergy Meds/Allgy - Home Medications Home Medications: Ambulatory Orders Medication Instructions Recorded Confirmed Sertraline [Zoloft] 25 mg PO DAILY 06/25/19 06/25/19 raNITIdine [Zantac] 150 mg PO DAILY 06/25/19 06/25/19 - Allergies Allergies/Adverse Reactions: Allergies Allergy/AdvReac Type Severity Reaction Status Date / Time seasonal allergies Allergy Unknown Uncoded 06/26/19 10:54 epidural AdvReac Unknown vomiting, Uncoded 08/29/19 01:27 dizziness Review of Systems - Other Findings Other Findings: As per HPI, remaining systems negative Physical - Abdominal Exam Vital Signs: Temp Pulse Resp BP Pulse Ox 97.9 F 105 H 18 131/79 H 99 08/28/19 21:36 08/28/19 21:36 08/28/19 21:36 08/28/19 21:36 08/28/19 21:36 Contraction Frequency (min/apart): Q 3-4 min Contraction Intensity: positive: Moderate - Monitoring Heart Rate Baseline: 150 Strip Review: positive: Category I - Presentation Presentation: positive: Vertex - Vaginal Exam Membranes: positive: Membranes intact Dilation (in cm): 4 at presentation; 6 at admit Effacement (%): 80 Station: positive: -2 - Speculum Exam Speculum Exam Performed: positive: No - Other Notes Labor Progress Note/Additional Text: Patient was observed over several hours with serial exam performed by same RN. Advanced to 6 cm dilation. Plan for Labor - Plan For Labor Plan for Labor: LABOR: 24 yo at 37w5d ega -Expectant management given early term gestational age -GBS positive. Ampicillin per GBS ppx protocol Avoid advancing labor until ppx window complete -Consider augmentation with slowed labor process. Not eligible for discharge with 6 cm cervical dilation in a term multip PAIN: Desires epidural -Fentanyl 50 mcg IV Q1H prn pain; not to exceed 200 mcg and not radha given after 7 cm -Nitrous oxide as desired Anticipate
--- NOTE | 2019-08-29 10:09 | CONSULTATION NOTE ---
Consultation Report: Call for 05/23 pain with contractions despite epidural running. Pt continue to hit PCEA button without relief. Sensory level L2. Dosed with 10cc 1% lidocaine in 2 5cc doses. Pt states pain is better at peak contraction but not gone. Pump changed to 14cc continuous vs 10cc q 50 mins. PCEA setting remain the same. Discussed options of leaving epidural as is, leaving epidural and dosing as needed if it continues to provide relief, and replacement of the catheter.
[2019-08-29] MEDS ORDERED: LIDOCAINE-MPF 1% 30 ML VIAL ONE (10:15)
--- NOTE | 2019-08-29 10:28 | PROVIDER PROGRESS NOTE ---
Labor Progress Note - Uterine Monitoring Uterine Monitoring Mode: positive: External toco Contraction Frequency (min/apart): 3-4 Contraction Intensity: positive: Strong Uterine Resting Tone: positive: Soft - Monitoring Monitor Mode: positive: External ultrasound Heart Rate Baseline: 140 Heart Rate Variability: positive: Moderate (6-25 bmp) Accelerations: positive: Present, 15x15 Decelerations: positive: None Strip Review: positive: Category I - Vaginal Exam Dilation (in cm): rim Effacement (%): 100 Station: 0 Cervical Position: Anterior - Labor Progress Note Labor Progress Note/Additional Text: AROM clear Pain control spotty Head LOP Roll to the right anticipate delivery Soon
[2019-08-29] MEDS ORDERED: LIDOCAINE 1% 50 ML MDV TD ONE (10:40)
[2019-08-29] MEDS ORDERED: WITCH HAZEL/GLYCERIN 1 PAD TOP PRN (11:16)
[2019-08-29] MEDS ORDERED: OXYTOCIN/DEXTROSE 5 % 30 UNIT/500 ML BAG IV PRN (11:26)
[2019-08-29] MEDS: IBUPROFEN 600 MG TABLET PO SCH ×2 (13:58→20:07)
[2019-08-29] MEDS: ACETAMINOPHEN 500 MG TABLET PO SCH ×2 (13:59→22:35)
--- NOTE | 2019-08-29 19:46 | DELIVERY NOTE ---
Delivery Note - Labor Labor: positive: Spontaneous - Presentation Presentation: positive: Vertex, FORREST - left occiput anterior - Nuchal Cord Nuchal Cord: positive: None - Anesthetic Anesthetic Type: - Amniotic Fluid Description Amniotic Fluid Description: positive: Clear - Episiotomy Type Episiotomy Type: positive: None - Laceration Laceration: positive: 1st degree - Delivery Outcome Delivery Outcome: positive: Livebirth - : positive: Placed in direct skin contact with mother, Suctioned, Bulb syringe, [place] used [place] sex: positive: Female - Cord Cord: positive: 3 vessels - Placenta Placenta: positive: Intact, Spontaneous - Estimated Blood Loss Estimated Blood Loss (in cc): 450 - Post Delivery Events Post Delivery Events: positive: No post delivery events - Delivery Comments (Free Text/Narrative) Delivery Comments (Free Text/Narrative): Pt had an epidural which didn't give complete relief. She reached complete at 1030 and was AROM at the same time. Clear fluid noted. Head was LOP. She had a 7 min second stage. head spontaneously rotated to FORREST on the perineum. At 1037 Live female FORREST. Apgars 8/9 Wt 3609. Placenta followed at 1043. EBL 450. responded to Pitocin.
[2019-08-29] MEDS: DOCUSATE SODIUM 100 MG CAPSULE PO SCH (20:07)
[2019-08-29] MEDS: FAMOTIDINE 20 MG TABLET PO SCH (20:07)
[2019-08-29] MEDS: SERTRALINE 25 MG TABLET PO SCH (20:12)
[2019-08-30] MEDS: IBUPROFEN 600 MG TABLET PO SCH ×2 (03:50→13:29)
[2019-08-30 08:14] VITALS: BP 108/57
[2019-08-30] MEDS: ACETAMINOPHEN 500 MG TABLET PO SCH (08:24)
[2019-08-30] MEDS: FAMOTIDINE 20 MG TABLET PO SCH (08:26)
[2019-08-30] MEDS: SERTRALINE 25 MG TABLET PO SCH (08:26)
[2019-08-30] MEDS: DOCUSATE SODIUM 100 MG CAPSULE PO SCH (08:26)
--- NOTE | 2019-08-30 10:03 | PROVIDER PROGRESS NOTE ---
Subjective - Prog Note Date Prog Note Date: 08/30/19 Prog Note Time: 10:01 - Subjective Pt reports feeling: Improved (Pt Ambulating well. breast feeding. bleeding decreasing. Wnats to go home.) Objective - Vital Signs/Intake & Output Reviewed Vital Signs: Yes Vital Signs: Vital Signs x48h Temp Pulse Resp BP Pulse Ox 08/30/19 08:11 36.7 C 73 16 108/57 L 100 Intake & Output: Intake & Output 08/27/19 08/28/19 08/29/19 08/30/19 23:59 23:59 23:59 23:59 Intake Total 2958.333 500 Output Total 550 Balance 2408.333 500 - Objective General Appearance: positive: No acute distress, Alert (in street clothing) Respiratory: positive: Chest non-tender, No respiratory distress, Breath sounds nml Cardiovascular: positive: Regular rate & rhythm, No murmur, No gallop Abdomen: positive: Non-tender, No organomegaly, Nml bowel sounds, Mass (At U) Extremities: negative: Calf tenderness, Ean's sign/cords - Lab Results Fish Bones: 08/29/19 00:40 Assessment/Plan - Problem List (1) (spontaneous vaginal delivery) Impression: PPD # I progressing. recovering well Breast feeding. Reviewed advantages of breast feeding. Discussed contraception. Discharge medication: Motrin 800 mg Colace 100 mg RTC one week.
--- NOTE | 2019-08-30 10:10 | Discharge Plan ---
Discharge Plan Problem Reviewed?: Yes Disposition: Home, Self Care Condition: Good Diet: Regular Activity Restrictions: Pelvic rest Shower Restrictions: No Driving Restrictions: No Weight Bearing: Full Weight No Smoking: If you smoke, Please STOP! Call for help.
--- NOTE | 2019-08-30 17:13 | Labor Flowsheet ---
Labor Flowsheet Datetime Report Generated by CPN: 08/30/2019 17:13 Datetime: 08/30/2019 08:14 VITAL SIGNS NBP Sys/Yesi/Mean (mmHg): 108 : 57 : 68 Pulse: 65 LaborFlag: Labor Datetime: 08/29/2019 12:44 SpO2 (%): 100 Datetime: 08/29/2019 10:30 VAGINAL EXAM Dilatation (cm): 10.0 Effacement (%): 100 Station: 1 Exam by: Dr. Espinal Membrane Status: Ruptured Membranes Ruptured Date/Time: 08/29/2019 10:30 Membranes Rupture Method: Artificial Amniotic Fluid Color: Clear Amniotic Fluid Amount: Moderate Amniotic Fluid Odor: Normal Vaginal Bleeding: Normal Show Datetime: 08/29/2019 09:31 ANESTHESIA Anesthesia Plans: Epidural Anesthesia Comments: called to bedside for bolus and restart the pump with a 14/hr rate, pt feeling some relief after about 30 mins. Datetime: 08/29/2019 09:30 Stage of : Labor UTERINE ACTIVITY Monitor Mode: External Frequency (min): 2.5-3 Quality: Strong Duration (sec): 60-70 Pattern: Normal: <= 5 Contractions in 10 Minutes Resting Tone (Palpate): Relaxed ASSESSMENT A Monitor Mode: External US FHR Baseline Rate : 145 FHR Baseline Changes: No Baseline Change Variability: Moderate 6-25 bpm Accelerations: 15X15 Decelerations: None Pain Presence: Intermittent Pain Type: Cramping Oxygen Method: Room Air Patient Position/Activity: Left Tilt; Low Fowlers Comfort Measures: Family Support Datetime: 08/29/2019 08:00 Category: Category I Provider Reviewed Strip: Yes Strip Reviewed by: Dr. Espinal/Dr. Miranda TEACHING Instructional Method: Verbal Plan of Care: Plan of Care Discussed; Labor COMMUNICATION Communication: Provider at Bedside Notification Reason: Status Update; Labor Status Datetime: 08/29/2019 05:30 Temperature (C): 36.8 Cervix, Position: Midposition Communication Comments: Anesthesia called to re-evaluate epidural Datetime: 08/29/2019 05:00 PAIN Pain Scale: 6 Pain Location: Abdomen; Back Pain Relief Measures: Comfort Measures Pain Coping: Other Pain Assessment Comments: Anesthesia called to rebolus Datetime: 08/29/2019 04:28 Antiemetics/Antacids: Zofran (mg) @ 4 Datetime: 08/29/2019 04:07 PATIENT CARE IV/Blood Work: IV Infusing per Order I/O Interventions: Alejandra Cath Inserted Datetime: 08/29/2019 03:15 Cervix, Consistency: Soft Datetime: 08/29/2019 02:53 MATERNAL ASSESSMENT Level of Consciousness: Fully Conscious Headache: Denies Nausea/Vomiting: Denies RUQ Epigastric Pain: Denies Datetime: 08/29/2019 02:39 Epidural Procedure: Test Dose Datetime: 08/29/2019 02:30 Contraction Comments: Pt sitting up for epidural making ctx difficult to trace Comments: Sitting up for epidural Epidural Positioning: Sitting Datetime: 08/29/2019 02:29 PROCEDURE TIME OUT Procedure Verify: Correct Patient Identity; Correct Side and Site are Marked; Accurate Procedure Co nsent Form; Agreement on Procedure to be Done; Correct Patient Position; Relevant Images and Results are Properly Labeled and Displayed; Addressed Need to Administer Antibiotics or Fluids for Irrigation ; Safety Precautions Based on Patient History or Medication Use Datetime: 08/29/2019 01:44 MEDICATIONS Antibiotics: Ampicillin IV 2 Gm Datetime: 08/29/2019 01:30 Monitor Interventions for UA: Maybell Adjusted Monitor Interventions for FHR: Ultrasound Adjusted
--- NOTE | 2019-08-31 12:01 | DISCHARGE SUMMARY ---
Physician: Vasu Espinal MD DATE OF ADMISSION: 08/29/2019 DATE OF DISCHARGE: 08/30/2019 ADMITTING DIAGNOSES: 1. Thirty-seven weeks 5 days. 2. Early labor. 3. Positive Group B strep. DISCHARGE DIAGNOSES: 1. Thirty-seven weeks 5 days. 2. Early labor. 3. Positive Group B strep. PROCEDURES: 1. Spontaneous vaginal delivery. 2. Epidural. PRESENTING HISTORY: The patient is a 26-year-old G2, P1 female at 37.5 weeks. She has been having difficulty with prodromal labor for the last 3 weeks. She presents to Labor and Delivery once again with a complaint of contraction. At this point, her cervix was noted to be 3 cm, 80%, and -2. She was observed and over time, her cervix continued to progress in dilatation. For this reason, she was admitted. Her labs show her to be Group B strep positive. LABORATORIES: CBC on admission showed a white count of 12.4, hemoglobin was 11.6, hematocrit was 34.5, platelets were 211. HOSPITAL COURSE: The patient admitted. She received Antibiotics, 3 doses prior to delivery. She continued to progress in her dilatation. She had an epidural placed for labor analgesia. However, there was some difficulty in the completeness of this effect. She did progress to complete and was artificially ruptured and had clear amniotic fluid. She had a very short second stage, pushed for 5 times, at which time she delivered a live infant with Apgars 8 and 9. She suffered a minor first-degree laceration in the perineal area. Her placenta followed. She did have some blood loss of roughly 450 mL at time of delivery. Her course has been unremarkable. She is tolerating a regular diet. She is at this time. We have discussed contraception. We have reviewed the fact that is not adequate. I have also reviewed the advantages of . She is being discharged to home on medications of Motrin 800 mg with Colace 100 mg. She is to followup in the clinic in 1 week. We also discussed the potential issues about infection as well as breast infections. TD: 08/30/2019 10:11 MTDD
== END 2019-08-30 13:20 | disposition home or self-care (01) | DRG 807 ==
LOC: WFO 21:24 → FBP 21:25 → WFO 08-29 00:17 → FBP 08-29 00:18 → UNDOADMIN 08-29 00:29 → FBP 08-29 00:29 → UNDODISIN 08-30 13:20
PROVIDERS: ADMIT Obstetrics & Gynecology; ATTEND Obstetrics & Gynecology
PROC: 10E0XZZ Delivery of Products of Conception, External Approach (ICD-10-PCS; principal; 2019-08-29)
PROC: 10907ZC Drainage of Amniotic Fluid, Therapeutic from Products of Conception, Via Natural or Artificial Opening (ICD-10-PCS; 2019-08-29)
DX: O99.824 Streptococcus B carrier state complicating childbirth (principal); Z37.0 Single live birth; O62.3 Precipitate labor; O70.0 First degree perineal laceration during delivery; Z3A.37 37 weeks gestation of pregnancy; Z86.79 Personal history of other diseases of the circulatory system
CPT/HCPCS: 36415; 85025; 86850; 86900; 86901; A9270; J7120; 99213

== ENCOUNTER 2019-12-14 14:52 | Outpatient (CLI) | payer OTHER ==
[2019-12-14 20:14] LABS: TRICHOMONAS VAGINALIS DNA NEGATIVE (NEGATIVE)
== END 2019-12-14 23:59 | disposition home or self-care (01) ==
LOC: LAB.WCP 14:52
PROVIDERS: ATTEND Obstetrics & Gynecology
DX: R10.2 Pelvic and perineal pain (principal); R63.5 Abnormal weight gain
CPT/HCPCS: 36415; 84443; 87491; 87591; 87661

== ENCOUNTER 2020-12-27 10:44 | Outpatient (CLI) | payer OTHER ==
[2020-12-27 18:19] LABS: BASOPHILS # (AUTO) 0.1 10^3/uL (0.0-0.1); BASOPHILS % (AUTO) 0.9 %; EOSINOPHILS # (AUTO) 0.1 10^3/uL (0.0-0.7); EOSINOPHILS % (AUTO) 1.2 %; HGB - HEMOGLOBIN 12.1 g/dL (12.0-16.0); LYMPHOCYTES # (AUTO) 2.3 10^3/uL (1.5-3.5); LYMPHOCYTES % (AUTO) 30.4 %; MEAN CORPUSCULAR HEMOGLOBIN 28.4 pg (27.0-31.0); MEAN CORPUSCULAR HGB CONC 31.8 g/dL (32.0-36.0); MEAN CORPUSCULAR VOLUME 89.2 fL (81.0-99.0); MEAN PLATELET VOLUME 9.8 fL (7.9-10.8); MONOCYTES # (AUTO) 0.5 10^3/uL (0.0-1.0); MONOCYTES % (AUTO) 6.8 %; NEUTROPHILS # (AUTO) 4.6 10^3/uL (1.5-6.6); NEUTROPHILS % (AUTO) 60.3 %; PLT - PLATELET COUNT 348 10^3/uL (130-450); RED BLOOD COUNT 4.26 10^6/uL (4.20-5.40); RED CELL DISTRIBUTION WIDTH 12.9 % (12.0-15.0); WHITE BLOOD COUNT 7.6 x10^3/uL (4.8-10.8)
[2020-12-27 18:42] LABS: ALBUMIN/GLOBULIN RATIO 1.2 (1.0-2.2); ALKALINE PHOSPHATASE 60 IU/L (42-121); ALT ALANINE AMINOTRANSFERASE 38 IU/L (10-60); AST ASPARTATE AMINOTRANSFERASE 22 IU/L (10-42); BILIRUBIN,TOTAL 0.6 mg/dL (0.2-1.0); BUN - BLOOD UREA NITROGEN 16 mg/dL (6-20); CALCIUM 9.5 mg/dL (8.5-10.3); CARBON DIOXIDE - CO2 23 mmol/L (21-32); CHLORIDE 105 mmol/L (101-111); CHOL/HDL RATIO 2.8 (<4.4); CHOLESTEROL 192 mg/dL; CREATININE 0.8 mg/dL (0.4-1.0); GFR - MDRD 87 (>89); GLUCOSE 95 mg/dL (70-100); HDL CHOLESTEROL 69 mg/dL; LDL CHOLESTEROL,CALCULATED 103 mg/dL; LDL/HDL RATIO 1.5 (<4.4); MAGNESIUM 2.1 mg/dL (1.7-2.8); POTASSIUM 4.4 mmol/L (3.5-5.0); SODIUM 139 mmol/L (135-145); TOTAL PROTEIN 7.3 g/dL (6.7-8.2); TRIGLYCERIDES 99 mg/dL; VLDL CHOLESTEROL 20 mg/dL
[2020-12-27 18:54] LABS: THYROID STIMULATING HORMONE 2.8 uIU/mL (0.34-5.60)
[2020-12-27 19:21] LABS: FOLLICLE STIMULATING HORMONE 2.42 mIU/mL
[2020-12-27 19:22] LABS: LUTEINIZING HORMONE 3.75 mIU/mL
== END 2020-12-27 23:59 | disposition home or self-care (01) ==
LOC: LAB.WCP 10:44
PROVIDERS: ATTEND Physician Assistant Medical
DX: R63.5 Abnormal weight gain (principal); Z86.79 Personal history of other diseases of the circulatory system; Z13.9 Encounter for screening, unspecified
CPT/HCPCS: 36415; 80050; 80061; 83001; 83002; 83721; 83735

== ENCOUNTER 2020-12-27 11:16 | Outpatient (CLI) | payer OTHER ==
--- NOTE | 2020-12-27 12:47 | XRAY Report ---
PROCEDURE: Lumbar Spine 2 View INDICATIONS: LOWER BACK PAIN TECHNIQUE: 2 views of the lumbar spine were acquired. COMPARISON: None. FINDINGS: Bones: 5 [id number] vertebrae are present. There is normal bony alignment. No vertebral body compression fractures. No suspicious bony lesions. Soft tissues: Overlying bowel gas pattern is normal. No suspicious soft tissue calcifications. IMPRESSION: Normal for age, source of current symptoms is not seen. Reviewed by: Triston Hidalgo MD on 12/27/2020 12:45 PM PDT Approved by: Triston Hidalgo MD on 12/27/2020 12:45 PM PDT Station ID: [id number]
--- NOTE | 2020-12-27 12:50 | XRAY Report ---
PROCEDURE: Cervical Spine 2 View INDICATIONS: CHRONIC NECK PAIN TECHNIQUE: 3 view(s) of the cervical spine were acquired. COMPARISON: None. FINDINGS: Bones: No fractures or dislocations to the T1 level. The lateral masses of C1 appear intact on the odontoid view. No suspicious bony lesions. There is mid cervical kyphosis, chronicity uncertain Soft tissues: No prevertebral soft tissue swelling. IMPRESSION: Mid cervical kyphosis, chronicity uncertain, no trauma found, no degenerative change eliel ntified. Reviewed by: Triston Hidalgo MD on 12/27/2020 12:48 PM PDT Approved by: Triston Hidalgo MD on 12/27/2020 12:48 PM PDT Station ID: [id number]
== END 2020-12-27 11:17 | disposition home or self-care (01) ==
LOC: DI.N 11:16
PROVIDERS: ATTEND Physician Assistant Medical
DX: M54.5 Low back pain (principal); M40.202 Unspecified kyphosis, cervical region; R63.5 Abnormal weight gain; Z86.79 Personal history of other diseases of the circulatory system; Z13.9 Encounter for screening, unspecified
CPT/HCPCS: 36415; 80050; 80061; 83001; 83002; 83721; 83735

== ENCOUNTER 2021-06-19 17:51 | Emergency (ER) | payer OTHER ==
[2021-06-19] MEDS ORDERED: SODIUM CHLORIDE 0.9% 1,000 ML IV STA (18:19)
[2021-06-19] MEDS ORDERED: ONDANSETRON 4 MG/2 ML VIAL IVP STA (18:19)
[2021-06-19 18:36] LABS: BASOPHILS # (AUTO) 0.1 10^3/uL (0.0-0.1); BASOPHILS % (AUTO) 0.6 %; EOSINOPHILS # (AUTO) 0.1 10^3/uL (0.0-0.7); EOSINOPHILS % (AUTO) 1.7 %; HCT - HEMATOCRIT 40.8 % (37.0-47.0); HGB - HEMOGLOBIN 13.4 g/dL (12.0-16.0); MEAN CORPUSCULAR HGB CONC 32.8 g/dL (32.0-36.0); MEAN CORPUSCULAR VOLUME 88.3 fL (81.0-99.0); MEAN PLATELET VOLUME 9.3 fL (7.9-10.8); MONOCYTES # (AUTO) 0.6 10^3/uL (0.0-1.0); MONOCYTES % (AUTO) 7.5 %; NEUTROPHILS # (AUTO) 4.1 10^3/uL (1.5-6.6); NEUTROPHILS % (AUTO) 51.9 %; PLT - PLATELET COUNT 344 10^3/uL (130-450); RED BLOOD COUNT 4.62 10^6/uL (4.20-5.40); RED CELL DISTRIBUTION WIDTH 11.9 % (12.0-15.0); WHITE BLOOD COUNT 7.8 x10^3/uL (4.8-10.8)
[2021-06-19 18:39] LABS: BILIRUBIN,URINE NEGATIVE (NEGATIVE); GLUCOSE, URINE (UA) NEGATIVE (NEGATIVE); KETONES,URINE (UA) NEGATIVE (NEGATIVE); LEUKOCYTE ESTERASE, URINE NEGATIVE (NEGATIVE); NITRITE,URINE NEGATIVE (NEGATIVE); OCCULT BLOOD,URINE MODERATE (NEGATIVE); PROTEIN,URINE NEGATIVE (NEGATIVE); UROBILINOGEN,URINE 0.2 (NORMAL) E.U./dL (NORMAL)
[2021-06-19 18:41] LABS: CLARITY,URINE CLEAR (CLEAR); HCG UR QUAL NEGATIVE
[2021-06-19] MEDS ORDERED: ONDANSETRON ODT 4 MG TABLET TL STA (18:43)
[2021-06-19 18:51] LABS: ALBUMIN 4.2 g/dL (3.2-5.5); ALBUMIN/GLOBULIN RATIO 1.1 (1.0-2.2); BILIRUBIN,TOTAL 0.3 mg/dL (0.2-1.0); CALCIUM 9.3 mg/dL (8.5-10.3); CREATININE 0.7 mg/dL (0.4-1.0); POTASSIUM 3.9 mmol/L (3.5-5.0)
[2021-06-19 18:52] LABS: BACTERIA,URINE Rare /HPF (None Seen); RBC,URINE 0-5 /HPF (0-5); SQUAMOUS EPITHELIAL CELL,UR RARE Squamous (<= Few); WBC,URINE 0-3 /HPF (0-5)
--- NOTE | 2021-06-19 19:01 | ED Physician Documentation ---
History of Present Illness - Stated complaint Stated Complaint: ABD PX - Chief complaint Chief Complaint: Abd Pain - Additonal information Additional information: 26-year-old female presents emergency department for evaluation of now 3 to 4 weeks lower abdominal and pelvic discomfort. She describes persistent. Like cramping that began with the onset of her last menstrual cycle and has not abated. There have been no fevers but she does describe some discomfort with urination. Denies urgency or frequency. She states that she has never had symptoms like this in the past and was concerned that she might have a urinary tract infection. No flank pain. No history of diabetes or renal colic. some nausea. No vomiting No pertinent PSH Review of Systems Constitutional: denies: Fever, Chills Eyes: reports: Reviewed and negative Nose: reports: Reviewed and negative Throat: reports: Reviewed and negative Cardiac: reports: Reviewed and negative Respiratory: reports: Reviewed and negative GI: reports: Abdominal Pain, Nausea. denies: Vomiting, Constipation, Diarrhea : reports: Dysuria. 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 HEENT: None Psych: None Musculoskeletal: None Derm: None - Past Surgical History Past Surgical History: Yes Cardiovascular: Other - Present Medications Home Medications: Ambulatory Orders Medication Instructions Recorded Confirmed Sertraline [Zoloft] 25 mg PO DAILY 06/25/19 06/25/19 raNITIdine [Zantac] 150 mg PO DAILY 06/25/19 06/25/19 - Allergies Allergies/Adverse Reactions: Allergies Allergy/AdvReac Type Severity Reaction Status Date / Time seasonal allergies Allergy Unknown Uncoded 06/19/21 18:10 epidural AdvReac Unknown vomiting, Uncoded 06/19/21 18:10 dizziness - Social History Does the pt smoke?: No Smoking Status: Never smoker Does the pt drink ETOH?: No Does the pt have substance abuse?: No - Immunizations Immunizations are current?: Yes - POLST Patient has POLST: No PD ED PE NORMAL - General General: Alert and oriented X 3, No acute distress, Well developed/nourished - HEENT HEENT: PERRL, Moist mucous membranes - Neck Neck: No adenopathy - Cardiac Cardiac: RRR, No murmur - Respiratory Respiratory: No respiratory distress, Clear bilaterally - Abdomen Abdomen: Normal bowel sounds, Soft. No: Non tender (tenderness lower abdominal region without guarding or rebound. negative mcburneys) - Back Back: No CVA TTP, No spinal TTP - Derm Derm: Normal color, Warm and dry, No rash - Extremities Extremities: No deformity, No tenderness to palpate, Normal ROM s pain - Neuro Neuro: Alert and oriented X 3, mine analyst 2-12 intact, No motor deficit Eye Opening: Spontaneous Motor: Obeys Commands Verbal: Oriented GCS Score: 15 Results - Vitals Vitals: Vital Signs - 24 hr 06/19/21 06/19/21 18:04 19:44 Temperature 36.6 C 37.2 C Heart Rate 108 H 100 Respiratory 17 18 Rate Blood Pressure 148/101 H 152/104 H O2 Saturation 99 99 Oxygen O2 Source Room air - Labs Labs: Laboratory Tests 06/19/21 06/19/21 06/19/21 18:17 18:26 18:26 WBC 7.8 RBC 4.62 Hgb 13.4 Hct 40.8 MCV 88.3 MCH 29.0 MCHC 32.8 RDW 11.9 L Plt Count 344 MPV 9.3 Neut # (Auto) 4.1 Lymph # (Auto) 3.0 [place] # (Auto) 0.6 Eos # (Auto) 0.1 Baso # (Auto) 0.1 Absolute Nucleated RBC 0.00 Nucleated RBC % 0.0 Sodium 140 Potassium 3.9 Chloride 105 Carbon Dioxide 25 Anion Gap 10.0 BUN 11 Creatinine 0.7 Estimated GFR (MDRD) 100 Glucose 107 H Calcium 9.3 Total Bilirubin 0.3 AST 19 ALT 23 Alkaline Phosphatase 69 Total Protein 8.0 Albumin 4.2 Globulin 3.8 Albumin/Globulin Ratio 1.1 Lipase 38 Urine Color YELLOW Urine Clarity CLEAR Urine pH 7.0 Ur Specific [place] 1.020 Urine Protein NEGATIVE Urine Glucose (UA) NEGATIVE Urine Ketones NEGATIVE Urine Occult Blood MODERATE H Urine Nitrite NEGATIVE Urine Bilirubin NEGATIVE Urine Urobilinogen 0.2 (NORMAL) Ur Leukocyte Esterase NEGATIVE Urine RBC 0-5 Urine WBC 0-3 Ur Squamous Epith Cells RARE Squamous Urine Bacteria Rare Ur Microscopic Review INDICATED Urine Culture Comments NOT INDICATED Urine HCG, Qual NEGATIVE - Rads (name of study) Ct abd Radiology: Final report received (Normal appendix. No evidence of acute abdominal process. Mild hepatic steatosis.) PD MEDICAL DECISION MAKING - ED course Complexity details: reviewed results, re-evaluated patient, d/w patient ED course: 26-year-old female presents emergency department for evaluation of 3 to 4 weeks lower pelvic and abdominal pain. Reports a constant cramping in which she feels is her uterus. She has a history of PCOS and is on control for control of the symptoms. She denies any fevers. No dysuria urgency or frequency. On exam has some mild tenderness in the suprapubic region was elicited. UA is not consistent with infection. Screening labs including CBC and electrolytes are also unremarkable. CT of the abdomen was completed and it did not show any acute abdominal process. Specifically the appendix was normal. The pelvic organs including the ovaries and uterus were also unremarkable on scan. Patient is concerned that she may have endometriosis. We discussed the typical pain control for this includes the use of NSAID medications and consideration of adjustment in her OCP. She does have an AGRICULTURAL SCIENTIST that she will schedule appointment for follow-up with. Departure - Departure Disposition: 01 Home, Self Care Clinical Impression: Lower abdominal pain Condition: Stable Record reviewed to determine appropriate education?: Yes Instructions: ED Pelvic Pain [facility] Comments: Siomara you are seen in the emergency department today for lower abdominal pain that has been ongoing for a number of weeks. Your screening labs including blood count, electrolytes and urine do not show any worrisome process. There are no signs of infection. A CT of your abdomen was completed and it shows normal kidneys, appendix, gallbladder, kidneys, ovaries and uterus. The cause of your pain is not clear however endometriosis could be a cause of persistent lower abdominal pain. I encourage you to discuss this with your primary care doctor or your AGRICULTURAL SCIENTIST. They may want to consider changing your control. In general we typically recommend ibuprofen 600 mg with food 3 times a day for pain control. Return immediately to the ER if you develop any fevers, worsening pain, or have uncontrolled vomiting.
[2021-06-19] MEDS ORDERED: IOVERSOL 320 100 ML VIAL IVP ONE ×2 (19:07→21:15)
[2021-06-19 19:47] VITALS: BP 152/104
--- NOTE | 2021-06-19 21:19 | CT Report ---
PROCEDURE: Abdomen/Pelvis W INDICATIONS: 3-4 weeks lower abdomianl pain CONTRAST: IV CONTRAST: Optiray 320 ml: 100 PO CONTRAST: *NO PO CONTRAST TECHNIQUE: After the administration of intravenous contrast, 5 mm thick sections acquired from the diaphragms to the symphysis. 5 mm thick coronal and sagittal reformats were acquired. For radiation dose reducti on, the following was used: automated exposure control, adjustment of mA and/or kV according to toña ent size. COMPARISON: None. FINDINGS: Image quality: Excellent. ABDOMEN: Lung bases: Lung bases are clear. Heart size is normal. Solid organs: Liver and spleen are normal in size and enhancement. Mild hepatic steatosis. Gallblad charlee is unremarkable. Biliary system is non dilated. Pancreas enhances normally. No adrenal nodules . Kidneys demonstrate normal size and enhancement, without hydronephrosis. Peritoneum and bowel: Bowel loops demonstrate normal wall thickness and caliber. A normal appendix is visualized. No free fluid or air. Nodes and vessels: No retroperitoneal or mesenteric adenopathy by size criteria. Aorta and inferior vena cava are normal in size. Miscellaneous: No ventral hernias. PELVIS: Genitourinary: Bladder wall thickness is normal. Miscellaneous: No inguinal hernias or adenopathy. Bones: No suspicious bony lesions. No vertebral body compression fractures. IMPRESSION: 1. Normal appendix. No evidence of acute abdominal process. 2. Mild hepatic steatosis. Reviewed by: Lake Eisenberg MD on 06/19/2021 9:17 PM PDT Approved by: Lake Eisenberg MD on 06/19/2021 9:17 PM PDT Station ID: [id number]
== END 2021-06-19 21:47 | disposition home or self-care (01) ==
LOC: ED 17:51
DX: R10.30 Lower abdominal pain, unspecified (principal); R11.0 Nausea; R30.0 Dysuria
CPT/HCPCS: 36415; 74177; 80053; 81001; 81025; 83690; 85025; 99284; Q0162; Q9967; 81003; 87086

== ENCOUNTER 2021-07-16 14:41 | Outpatient (CLI) | payer OTHER ==
--- NOTE | 2021-07-16 16:32 | MRI Report ---
PROCEDURE: Lumbar Spine W/O INDICATIONS: LUMBAR BACK PAIN TECHNIQUE: Noncontrast sagittal T1 spin echo and T2 fast echo, sagittal STIR, axial T1 and T2 fast spin echo thr ough the lumbar spine. In cases with scoliosis, additional coronal T2 fast spin echo may be performe d. COMPARISON: Correlation is made with prior abdomen pelvis CT, 06/19/2021. FINDINGS: Image quality: Excellent. Alignment and Curvature: There is normal bony alignment. Bone Marrow: Marrow is of normal overall signal. No acute vertebral body compression fractures. Spinal Cord: Conus medullaris terminates at the L1 level. Visualized cord demonstrates normal signa l and size. Paraspinous Soft Tissues: No paravertebral masses. T12-L1: Normal in appearance. L1-L2: Normal in appearance. L2-L3: Normal in appearance. L3-L4: Normal in appearance. L4-L5: Normal in appearance. L5-S1: Normal in appearance. IMPRESSION: Normal examination, without significant disc pathology, central canal narrowing, or neur al foraminal narrowing. Reviewed by: Feliciano Walker MD on 07/16/2021 3:30 PM JOCELYN Approved by: Feliciano Walker MD on 07/16/2021 3:30 PM JOCELYN Station ID: [id number]
== END 2021-07-16 14:42 | disposition home or self-care (01) ==
LOC: DI 14:41
PROVIDERS: ATTEND Physician Assistant Medical
DX: M54.50 Low back pain, unspecified (principal)

== ENCOUNTER 2021-07-16 14:43 | Outpatient (CLI) | payer OTHER ==
--- NOTE | 2021-07-17 09:31 | Ultrasound Report ---
PROCEDURE: Pelvic w/Transvaginal INDICATIONS: PELVIC PAIN TECHNIQUE: Real-time scanning was performed of the pelvic organs, with image documentation. Additional endovagi nal scanning was necessary due to incomplete visualization of the adnexal and endometrial structures by transabdominal scanning. COMPARISON: Reference is made to the pelvic ultrasound report dated November 16, 2018. FINDINGS: UTERUS: Retroverted, predominantly homogeneous echotexture, and measures 9 x 3.3 x 4.9 cm. The endometrial thickness measures 6.7 mm. RIGHT OVARY: 3.4 x 1.8 x 2 cm. Color-flow projects over the ovarian tissue. Greater than 12 follicles . LEFT OVARY: 3.3 x 2.5 x 2.2 cm. Color-flow projects over the ovarian tissue. Greater than 12 follicle s. OTHER: Small amount of fluid in the posterior cul-de-sac. IMPRESSION: 1.No significant sonographic abnormality. Reviewed by: Alfredo Mcguire MD on 07/17/2021 9:30 AM PDT Approved by: Alfredo Mcguire MD on 07/17/2021 9:30 AM PDT Station ID: [id number]
== END 2021-07-16 14:44 | disposition home or self-care (01) ==
LOC: DI 14:43
PROVIDERS: ATTEND Physician Assistant Medical
DX: R10.2 Pelvic and perineal pain (principal); M54.50 Low back pain, unspecified

== ENCOUNTER 2021-07-21 08:00 | Outpatient (CLI) | payer OTHER | END 2021-07-21 23:59 | disposition home or self-care (01) | LOC: LAB.N 08:00 | PROVIDERS: ATTEND Physician Assistant Medical | DX: R05.3 Chronic cough (principal); Z20.822 Contact with and (suspected) exposure to COVID-19 ==

== ENCOUNTER 2021-07-31 14:57 | Outpatient (CLI) | payer OTHER ==
[2021-07-31 15:26] LABS: BASOPHILS # (AUTO) 0.1 10^3/uL (0.0-0.1); BASOPHILS % (AUTO) 0.8 %; EOSINOPHILS # (AUTO) 0.1 10^3/uL (0.0-0.7); EOSINOPHILS % (AUTO) 1.2 %; HCT - HEMATOCRIT 38.4 % (37.0-47.0); HGB - HEMOGLOBIN 12.3 g/dL (12.0-16.0); LYMPHOCYTES # (AUTO) 2.6 10^3/uL (1.5-3.5); LYMPHOCYTES % (AUTO) 33.9 %; MEAN CORPUSCULAR HEMOGLOBIN 28.8 pg (27.0-31.0); MEAN CORPUSCULAR VOLUME 89.9 fL (81.0-99.0); MEAN PLATELET VOLUME 9.1 fL (7.9-10.8); MONOCYTES # (AUTO) 0.6 10^3/uL (0.0-1.0); MONOCYTES % (AUTO) 7.4 %; NEUTROPHILS # (AUTO) 4.4 10^3/uL (1.5-6.6); NEUTROPHILS % (AUTO) 56.6 %; PLT - PLATELET COUNT 333 10^3/uL (130-450); RED BLOOD COUNT 4.27 10^6/uL (4.20-5.40); RED CELL DISTRIBUTION WIDTH 12.3 % (12.0-15.0); WHITE BLOOD COUNT 7.8 x10^3/uL (4.8-10.8)
[2021-07-31 15:43] LABS: ALBUMIN 4.1 g/dL (3.2-5.5); ALBUMIN/GLOBULIN RATIO 1.2 (1.0-2.2); BILIRUBIN,TOTAL 0.3 mg/dL (0.2-1.0); CALCIUM 9.2 mg/dL (8.5-10.3); CREATININE 0.9 mg/dL (0.4-1.0); POTASSIUM 3.9 mmol/L (3.5-5.0); TOTAL PROTEIN 7.5 g/dL (6.7-8.2)
[2021-07-31 15:47] LABS: CHOL/HDL RATIO 3.8 (<4.4); CHOLESTEROL 209 mg/dL; HDL CHOLESTEROL 55 mg/dL; LDL CHOLESTEROL,CALCULATED 134 mg/dL; LDL/HDL RATIO 2.4 (<4.4); TRIGLYCERIDES 101 mg/dL; VLDL CHOLESTEROL 20 mg/dL
[2021-07-31 21:06] LABS: ESTIMATED AVERAGE GLUCOSE 108 mg/dL (70-100); HEMOGLOBIN A1c% 5.4 % (4.27-6.07)
== END 2021-07-31 14:58 | disposition home or self-care (01) ==
LOC: LAB 14:57
PROVIDERS: ATTEND Obstetrics & Gynecology
DX: E28.2 Polycystic ovarian syndrome (principal)
CPT/HCPCS: 36415; 80053; 80061; 83036; 83721; 84443; 85025

== ENCOUNTER 2021-10-21 08:00 | Outpatient (CLI) | payer OTHER ==
--- NOTE | 2021-10-21 18:50 | XRAY Report ---
PROCEDURE: Knee 3 View RT INDICATIONS: R KNEE PX TECHNIQUE: 3 views of the right knee(s) were acquired. COMPARISON: None. FINDINGS: Bones: No fractures or dislocations. No suspicious bony lesions. Soft tissues: No joint effusion. No suspicious soft tissue calcifications. IMPRESSION: Unremarkable right knee radiographs Reviewed by: Kirk Harry MD on 10/21/2021 5:49 PM [place] Approved by: Kirk Harry MD on 10/21/2021 5:49 PM [place] Station ID: [id number]
== END 2021-10-21 23:59 ==
LOC: DI.N 08:00
PROVIDERS: ATTEND Family Medicine
DX: M25.561 Pain in right knee (principal)